=== PATIENT | male | born 1975 | race Caucasian/White ===

== ENCOUNTER 2016-11-19 05:46 | Emergency (ER) | payer OTHER ==
[2016-11-19] MEDS ORDERED: SODIUM CHLORIDE 0.9% 1,000 ML ONE ×3 (06:22→09:55)
[2016-11-19 07:07] LABS: ABSOLUTE NEUTROPHIL COUNT 6.2 K/mm3 (1.8-7.7); BASO # 0.1 K/mm3 (0.0-0.2); BASO % 0.6 % (0.2-1.0); EOS # 0.2 (0.0-0.5); HEMATOCRIT 44.9 % (32.0-52.0); HEMOGLOBIN 15.4 gm/l (14.0-18.0); IMM NEUT% 0.4 % (0-1); LYMPH # 1.7 (1.0-4.8); LYMPH % 18.8 % (15-45); MEAN CELL VOLUME 85.2 fl (80.0-94.0); MEAN CORPUSCULAR HEMOGLOBIN 29.2 pg (27.0-31.0); MEAN CORPUSCULAR HGB CONC 34.3 g/dl (33.0-37.0); MEAN PLATELET VOLUME 9.7 fl (7.4-10.4); MONO # 0.9 (0.0-0.8); MONO % 9.9 % (4-12); NEUT % 68.3 % (43-75); PLATELET COUNT 219 K/mm3 (130-400); RED CELL DISTRIBUTION WIDTH 13.9 % (11.5-14.5)
[2016-11-19] MEDS ORDERED: DIPHENHYDRAMINE HCL 50 MG/1 ML VIAL ONE (08:09)
[2016-11-19 08:44] LABS: ALB/GLOB RATIO 1.4 (>1.0); CALCIUM 9.5 mg/dL (8.6-10.3)
[2016-11-19] MEDS ORDERED: ONDANSETRON 4 MG/2ML 2 ML VIAL ONE (09:55)
[2016-11-19 10:08] LABS: URINE BILIRUBIN NEGATIVE (NEGATIVE); URINE BLOOD NEGATIVE (NEGATIVE); URINE GLUCOSE (UA) NEGATIVE (NEGATIVE); URINE LEUKOCYTE ESTERASE NEGATIVE (NEGATIVE); URINE NITRITE NEGATIVE (NEGATIVE); URINE PROTEIN NEGATIVE (NEGATIVE); URINE UROBILINOGEN NORMAL (0-1 mg/dl)
[2016-11-19 10:14] LABS: URINE APPEARANCE CLEAR; URINE COLOR YELLOW
[2016-11-20 14:57] LABS: CHLAMYDIA BD Negative (Negative); N.GONORRHOEAE BD Negative (Negative); SOURCE Urine (())
== END 2016-11-19 10:33 | disposition home or self-care (01) ==
LOC: ED 05:46
DX: E86.0 Dehydration (principal); R11.10 Vomiting, unspecified
CPT/HCPCS: 83690; 87491; 87591; 85025; 80053; 81003; 99283 ×2; 96374; 96361 ×4; J1200; J2405; J7030 ×3